=== PATIENT | male | born 1965 | race Caucasian/White ===

== ENCOUNTER → 2020-11-18 | Outpatient (CLI) | payer BC ==
--- NOTE | 2020-11-18 10:10 | XR ---
Left knee HISTORY: Trauma and pain 4 views of the left knee Bone mineralization, joint spaces and alignment are maintained. Suprapatellar increased attenuation s uggests a joint effusion. There is soft tissue swelling present. IMPRESSION: No radiographically apparent fracture or dislocation, follow-up as indicated. Joint effus ion may be present.
== END ==
LOC: RADXRYALE 08:38
PROVIDERS: ATTEND Family Medicine
DX: M25.562 Pain in left knee (principal)